=== PATIENT | male | born 1990 | race Caucasian/White ===

== ENCOUNTER 2022-08-06 08:16 | Outpatient (CLI) | payer BC, SELFPAY ==
[2022-08-06 18:40] LABS: Basophils Percent Auto 0.6 % (0.2-1.2); Eosinophils Absolute Auto 0.2 K/mm3 (0-0.3); Eosinophils Percent Auto 2.9 % (0-4.4); Hematocrit 46.8 % (42.0-52.0); Immature Granulocyte Absolute 0.01 K/mm3 (0.00-0.031); Immature Granulocyte Percent A 0.2 % (0-0.5); Lymphocytes Absolute Auto 2.28 K/mm3 (0.9-3.2); Lymphocytes Percent Auto 43.9 % (18.3-44.2); Mean Corpuscular HGB Conc 34.2 g/dl (32-36); Mean Corpuscular Hemoglobin 30.6 pg (26-34); Mean Corpuscular Volume 89.5 fl (80-100); Mean Platelet Volume 9.2 fl (7.4-10.4); Monocytes Absolute Auto 0.4 K/mm3 (0.1-0.6); Monocytes Percent Auto 7.7 % (2.6-8.5); Neutrophils Absolute Auto 2.3 K/mm3 (1.3-6.7); Neutrophils Percent Auto 44.7 % (45.5-73.1); Platelet Count Result 248 k/mm3 (150-375); Red Blood Count 5.23 M/mm3 (4.6-6.20); Red Cell Distribution Width 12.9 % (11.5-14.5); White Blood Count 5.2 K/mm3 (4.5-10.0)
[2022-08-06 18:52] LABS: Alanine Aminotransferase 160 U/L (6-50); Albumin Level 4.9 g/dL (3.5-5.1); Alkaline Phosphatase 106 U/L (38-126); Anion Gap 14 mmol/L (8-16); Aspartate Amino Transferase 71 U/L (17-59); Blood Urea Nitrogen 16 mg/dL (9-20); Calcium 9.1 mg/dL (8.4-10.2); Carbon Dioxide 23 mmol/L (22-30); Chloride 102 mmol/L (98-107); Cholesterol 231 mg/dL (0-200); Estimated Glomerular Filt Rate > 60; Glucose 84 mg/dL (65-110); HDL Direct 42 mg/dL; Potassium 3.7 mmol/L (3.4-5.0); Sodium 139 mmol/L (137-145); Triglycerides 187 mg/dL (<150)
[2022-08-06 19:10] LABS: Vitamin D 25 Hydroxy 22.2 ng/mL
[2022-08-06 19:24] LABS: Thyroid Stimulating Hormone Reflex 0.108 uIU/mL (0.465-4.68)
[2022-08-06 20:15] LABS: LDL Cholesterol Direct 135 mg/dL
[2022-08-06 22:33] LABS: Free T4 Free Thyroxine Reflex 0.94 ng/dL (0.78-2.19)
[2022-08-06 23:42] LABS: Total Triiodothyronine (T3) 1.89 NG/ML (0.97-1.69)
== END 2022-08-06 08:17 | disposition home or self-care (01) ==
LOC: ANHGOSHLAB 08:19
PROVIDERS: PCP Family Medicine; Visit Provider Nurse Practitioner Family
DX: Z00.00 Encounter for general adult medical examination without abnormal findings (principal); Z13.220 Encounter for screening for lipoid disorders; E55.9 Vitamin D deficiency, unspecified; Z13.29 Encounter for screening for other suspected endocrine disorder
CPT/HCPCS: 36415; 80053; 80061; 82306; 84439; 84443; 84480; 85025

== ENCOUNTER 2022-09-20 15:10 | Outpatient (CLI) | payer BC, SELFPAY ==
[2022-09-20 22:04] LABS: Alanine Aminotransferase 85 U/L (6-50); Albumin Level 4.8 g/dL (3.5-5.1); Alkaline Phosphatase 92 U/L (38-126); Anion Gap 10 mmol/L (8-16); Aspartate Amino Transferase 54 U/L (17-59); Bilirubin,Total 0.5 mg/dL (0.2-1.3); Blood Urea Nitrogen 15 mg/dL (9-20); Calcium 8.6 mg/dL (8.4-10.2); Carbon Dioxide 25 mmol/L (22-30); Chloride 104 mmol/L (98-107); Estimated Glomerular Filt Rate > 60; Glucose 91 mg/dL (65-110); Potassium 4.1 mmol/L (3.4-5.0); Sodium 139 mmol/L (137-145)
[2022-09-23 13:59] LABS: Thyrotropin Receptor Antibody <1.00 IU/L (<=2.00)
[2022-09-24 03:59] LABS: Thyroglobulin 8.9 ng/mL (2.8-40.9); Thyroglobulin Antibodies <1 IU/mL (<=1); Thyroid Peroxidase Antibodies <1 IU/mL (<9)
[2022-09-24 05:12] LABS: Triiodothyronine T3 Free 3.4 pg/mL (2.3-4.2)
== END 2022-09-20 15:11 | disposition home or self-care (01) ==
PROVIDERS: PCP Family Medicine; Visit Provider Family Medicine
DX: R79.89 Other specified abnormal findings of blood chemistry (principal); E07.9 Disorder of thyroid, unspecified
CPT/HCPCS: 36415; 80053; 83519; 84432; 84439; 84443; 84481; 86376; 86800

== ENCOUNTER → 2022-11-15 07:42 | Outpatient (CLI) | payer OTHER, SELFPAY ==
--- NOTE | ~2022-11-15 | US_ITS ---
Limited Abdominal Sonogram: Real-time sonographic imaging of the right upper quadrant was performed. Clinical History: Abnormal findings of blood chemistry Findings: The liver appears echogenic, with no evidence of mass lesion or bile duct dilatation. Main portal vein demonstrates normal direction of flow. The gallbladder is well distended, and appears no rmal with no evidence of gallstone or wall thickening. The common bile duct measures 4 mm. The visua lized pancreas, aorta, and IVC are unremarkable. Right kidney measures 10.8 cm in length, without lori dence for hydronephrosis. Impression: Diffuse fatty infiltration of the liver. Reviewed, dictated and finalized at location M. Impression: Diffuse fatty infiltration of the liver.
== END ==
PROVIDERS: PCP Family Medicine; Visit Provider Family Medicine
DX: R79.89 Other specified abnormal findings of blood chemistry (principal); K76.0 Fatty (change of) liver, not elsewhere classified
CPT/HCPCS: 76705

== ENCOUNTER 2023-07-14 12:53 | Outpatient (CLI) | payer OTHER, SELFPAY ==
[2023-07-14 20:20] LABS: Anion Gap 9 mmol/L (8-16); Blood Urea Nitrogen 12 mg/dL (9-20); Calcium 9.3 mg/dL (8.4-10.2); Carbon Dioxide 24 mmol/L (22-30); Chloride 105 mmol/L (98-107); Estimated Glomerular Filt Rate > 60; Glucose 91 mg/dL (65-110); Sodium 138 mmol/L (137-145)
[2023-07-18 23:58] LABS: Testosterone Total 13 ng/dL (250-1100)
[2023-07-20 21:22] LABS: Estradiol, Ultrasensitive 136 pg/mL (< OR = 29)
== END 2023-07-14 12:54 | disposition home or self-care (01) ==
LOC: ANHGOSHLAB 12:55
PROVIDERS: PCP Family Medicine
DX: Z78.9 Other specified health status (principal)
CPT/HCPCS: 36415; 80048; 82670; 84403

== ENCOUNTER 2023-11-28 08:15 | Outpatient (CLI) | payer OTHER, SELFPAY ==
[2023-11-28 14:45] LABS: Hematocrit 41.9 % (42.0-52.0); Hemoglobin 14.1 g/dL (14.0-18.0); Mean Corpuscular HGB Conc 33.7 g/dl (32-36); Mean Corpuscular Hemoglobin 30.4 pg (26-34); Mean Corpuscular Volume 90.3 fl (80-100); Platelet Count Result 270 k/mm3 (150-375); Red Blood Count 4.64 M/mm3 (4.6-6.20); Red Cell Distribution Width 12.5 % (11.5-14.5)
[2023-11-28 15:27] LABS: Vitamin D 25 Hydroxy 37.9 ng/mL
[2023-11-28 16:00] LABS: Alanine Aminotransferase 67 U/L (6-50); Albumin Level 4.5 g/dL (3.5-5.1); Alkaline Phosphatase 122 U/L (38-126); Anion Gap 10 mmol/L (4-12); Aspartate Amino Transferase 58 U/L (17-59); Bilirubin,Total 0.6 mg/dL (0.2-1.3); Blood Urea Nitrogen 13 mg/dL (9-20); Calcium 9.1 mg/dL (8.4-10.2); Carbon Dioxide 25 mmol/L (22-30); Chloride 101 mmol/L (98-107); Cholesterol 174 mg/dL (0-200); Estimated Glomerular Filt Rate > 60; Glucose 86 mg/dL (65-110); HDL Direct 48 mg/dL; Potassium 3.9 mmol/L (3.4-5.0); Sodium 136 mmol/L (137-145); Triglycerides 241 mg/dL (<150)
[2023-11-28 16:11] LABS: LDL Cholesterol Direct 92 mg/dL
== END 2023-11-28 08:16 | disposition home or self-care (01) ==
LOC: ANHGOSHLAB 08:18
PROVIDERS: PCP Family Medicine; Visit Provider Nurse Practitioner
DX: Z00.00 Encounter for general adult medical examination without abnormal findings (principal); E55.9 Vitamin D deficiency, unspecified
CPT/HCPCS: 36415; 80053; 80061; 82306; 84443; 85027

== ENCOUNTER 2024-03-05 10:25 | Outpatient (CLI) | payer OTHER, SELFPAY ==
[2024-03-05 16:07] LABS: Hemoglobin A1C 5.4 % (<5.7)
== END 2024-03-05 10:26 | disposition home or self-care (01) ==
LOC: ANHGOSHLAB 10:26
PROVIDERS: PCP Family Medicine; Visit Provider Family Medicine
DX: Z13.29 Encounter for screening for other suspected endocrine disorder (principal); F41.8 Other specified anxiety disorders; R53.83 Other fatigue; Z13.1 Encounter for screening for diabetes mellitus
CPT/HCPCS: 36415; 83036; 84443

== ENCOUNTER 2024-04-20 07:59 | Outpatient (CLI) | payer OTHER, SELFPAY | END 2024-04-21 07:10 | disposition home or self-care (01) | PROVIDERS: PCP Family Medicine; Visit Provider Family Medicine | DX: G47.10 Hypersomnia, unspecified (principal) | CPT/HCPCS: 95810 ==

== ENCOUNTER 2024-11-27 09:14 | Outpatient (CLI) | payer OTHER, SELFPAY ==
--- OUTSIDE RECORDS SUMMARY | 2024-11-27 09:22 | XMS_ITS | Encounter Summary ---
Author Organization [facility] Address [address] [place] [address] Phone Care Team Providers Care Entertainment Manager Name Role Phone Mani Lucas MD Primary Care Provider Encounter Details Date Type Department Care Team (Latest Contact Info) Description 11/15/2022 Orders Only [facility] EML Scanning, Provider Social History Tobacco Use Types Packs/Day Years Used Date Smoking Tobacco: Never Assessed Sex and Gender Information Value Date Recorded Sex Assigned at Male 12/14/2022 4:26 PM CDT Legal Sex Male 2:52 PM CDT Gender Identity Female 10/11/2022 2:54 PM CDT Sexual Orientation Bisexual 08/11/2023 7: 55 PM CDT documented as of this encounter Plan of Treatment Not on file documented as of this encounter Procedures Procedure Name Priority Date/Time Associated Diagnosis Comments SCAN - RADIOLOGY/IMAGING 11/15/2022 documented in this encounter Results * SCAN - RADIOLOGY/IMAGING (11/15/2022) Anatomical Region Laterality Modality Other us Provider Scanning Final Result documented in this encounter Visit Diagnoses Not on filedocumented in this encounter Care Teams Entertainment Manager Relationship Specialty Start Date End Date Mani Lucas MD PCP - General Family Practice 10/11/22 documented as of this encounter
--- OUTSIDE RECORDS SUMMARY | 2024-11-27 09:22 | XMS_ITS | Clinical Summary ---
Author Organization [facility] Address [address] [place] [id number] Care Team Providers Care Interlocker Maintainer Name Role Phone Mani Lucas MD Primary Care Provider Allergies No known active allergies Medications citalopram (CeleXA) 20 mg tablet Take 2 tablets (40 mg total) by mouth daily 3 Active cholecalciferol (VITAMIN D-3) 50,000 unit capsule Take 1 capsule (50,000 Units total) by mouth once a week 3 Active syringe, disposable, (Easy Touch Luer Lock Syringe) 1 mL syringeIndicati ons:Male-to-fem wale transgender person Use for estradiol weekly 13 each 3 3 Active insulin syringe needleless (Easy Touch Luer Lock Insulin) 1 mL syringeIndicati ons:Other specified health status USE ONE SYRINGE FOR ESTRADIOL WEEKLY 13 each 3 4 Active needle, disp, 18 G (BD Regular Bevel [place]ampart) 18 gauge x 1 1/2 needleIndicatio ns:Hormone replacement therapy,Male-to -female transgender person USE TO DRAW UP ESTRADIOL ONCE WEEKLY. SWITCH TO ORDERED 25 G NEEDLE PRIOR TO INJECTION. 13 each 4 Active BD SafetyGlide Needle 25 gauge x 5/8 needleIndicatio ns:Nrdc-fv-ebuq le transgender person USE TO INJECT ESTRADIOL WEEKLY 13 each 3 5 Active vehicle base no.24, bulk, creamIndication s:Dyov-be-rnomy e transgender person,Painful erection Topical testosterone cream 2.5 mg/g (0.25% Versabase cream). Apply 1 gram topically to genitals once a week. 4 g 3 5 Active estradiol valerate (DELESTROGEN) 20 mg/mL injectionIndica tions:Male-to-f emale transgender person INJECT 0.15 ML (3 MG) UNDER THE SKIN EVERY 5 DAYS 15 mL 1 5 Active progesterone (PROMETRIUM) 100 mg capsule TAKE 1 CAPSULE BY MOUTH EVERY DAY 90 capsule 5 Active Active Problems Problem Noted Date Diagnosed Date BMI 34.0-34.9,adult 07/02/2024 Painful erection 07/12/2023 Zuis-kl-rjesqu transgender person 03/28/2023 Assessment & Plan (03/28/2023 4:07 PM HAZARDOUS MATERIALS WASTE TECHNICIAN): The patient confirms a marked incongruence between the experienced/expressed gender and bandar gender of at least 6 mo in duration. We reviewed anticipated effects of therapy and anticipated time frame She understands potential risks of therapy including: thromboembolic disease, breast cancer, coronary artery disease, cerebrovascular disease, cholelithiasis, hypertriglyceridemia, worsening migraines, hypertension. She is not interested in fertility preservation at this time. We discussed the necessity of using reliable contraception if intercourse with individuals who make eggs to prevent . She has good insight and understanding of risks/benefits of gender affirming hormone therapy. She understands that some of the effects of hormone therapy are irreversible: breast growth, and potentially decrease in fertility. Based on my assessment, she continues to be a good candidate for estradiol. 1) Medication Estradiol valerate 2 mg SC weekly Spironolactone 50 mg PO daily 2) Lab Monitoring Labs ordered today: BMP, testosterone, estradiol, and Lipid panel Estradiol, testosterone q3 months x 1 year, then q 6 months Monitor K, Cr on spironolactone q3 months x 1 year then q6 months; LFTs on bicalutamide q3 months x 1 year then q 6 months CMP, Lipids at baseline and annually Target Estradiol level: 100-200 pg/mL Target testosterone level: < 50 ng/dl 3) Cancer Screening Breast: age 40 or after 5 years on estradiol Prostate: age 49 4) Patient information provided Laser hair removal info 5) Referrals provided Dermatology 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 2-3 times a week 12/14/2022 Q2: How many drinks containi ng alcohol do you have on a typical day when you are drinking? 3 or 4 12/14/2022 Frequency of Binge Drinking Not on file 12/2022 PHQ-2 Answer Date Recorded PHQ-2 Total Score (If total score is 3 or more points, staff should administer the PHQ-9) 1 12/14/2022 Sex and Gender Information Value Date Recorded Sex Assigned at Male 12/14/2022 4:26 PM CDT Legal Sex Male 2:52 PM CDT Gender Identity Female 10/11/2022 2:54 PM CDT Sexual Orientation Bisexual 08/11/2023 7: 55 PM CDT Obstetrics History Last Filed Vital Signs Vital Sign Reading Time Taken Comments Blood Pressure 105/73 07/02/2024 8:53 AM HAZARDOUS MATERIALS WASTE TECHNICIAN Pulse 61 07/02/2024 8:53 AM HAZARDOUS MATERIALS WASTE TECHNICIAN Temperature 36.4 C (97.5 F) 12/14/2022 10:54 AM CDT Respiratory Rate - - Oxygen Saturation 98% 07/02/2024 8:53 AM HAZARDOUS MATERIALS WASTE TECHNICIAN Inhaled Oxygen Concentration - - Weight 116.8 kg (257 lb 6.4 oz) 07/02/2024 8:53 AM HAZARDOUS MATERIALS WASTE TECHNICIAN Height 182.9 cm (6' 0.01) 07/02/2024 8:53 AM CS T Body Mass Index 34.9 07/02/2024 8:53 AM HAZARDOUS MATERIALS WASTE TECHNICIAN Plan of Treatment Health Maintenance Due Date Last Done Comments Hepatitis C Screening 1989 DTaP/Tdap/Td Vaccine (1 - Tdap) 2000 Varicella Vaccines (1 of 2 - 13+ 2-dose series) 2002 Hepatitis B Screening 08/27/2007 Regular Well Visit/Exam 18-64 08/27/2007 Depression Screening 12/15/2023 12/14/2022 Covid-19 Vaccine (2023-2 5 season) 2024 04/13/2021, 08/31/2020, 08/08/2020 Influenza Vaccine (#1) 2025 HPV Vaccines Aged Out No longer eligi ble based on patient's age to complete this topic Pneumococcal vaccine <65 Aged Out No longer eligible based on patient's age to complete this topic Insurance [facility] [id number] [facility] [id number] Care Teams Interlocker Maintainer Relationship Specialty Start Date End Date Mani Lucas MD PCP - General Family Practice 10/11/22
--- OUTSIDE RECORDS SUMMARY | 2024-11-27 09:22 | XMS_ITS | Referral Summary ---
Author Organization [facility] Address On [place] [address] Care Team Providers Care Equipment Maintenance Engineer Name Role Phone Mani Lucas MD Primary [...] needle, disp, 18 G (BD Regular Bevel [place]) 18 gauge x 1 1/2 needleIndicatio ns:Hormone replacement therapy,Male-to -female transgender person USE TO DRAW UP ESTRADIOL ONCE WEEKLY. SWITCH TO ORDERED 25 G NEEDLE PRIOR TO INJECTION. 13 each 4 Active BD SafetyGlide Needle 25 gauge x 5/8 needleIndicatio ns:Aojp-oy-retw le transgender person USE TO INJECT ESTRADIOL WEEKLY 13 each 3 5 Active vehicle base no.24, bulk, creamIndication s:Rkzc-im-mwjni e transgender person,Painful erection Topical testosterone cream [...] Date BMI 34.0-34.9,adult 07/02/2024 Painful erection 07/12/2023 Rsnz-vp-houqtx transgender person 03/28/2023 Assessment & Plan (03/28/2023 4:07 PM LEATHER DRIER): The patient confirms a marked incongruence between [...] 03/28/2023 Assessment & Plan (03/28/2023 4:08 PM LEATHER DRIER): Seeing speech therapy Social History Tobacco Use Types Packs/Day Years [...] Orientation Bisexual 08/11/2023 7: 55 PM CDT Last Filed Vital Signs Vital Sign Reading Time Taken Comments Blood Pressure 105/73 07/02/2024 8:53 AM LEATHER DRIER Pulse 61 07/02/2024 8:53 AM LEATHER DRIER Temperature 36.4 C (97.5 F) 12/14/2022 10:54 AM CDT Respiratory Rate - - Oxygen Saturation 98% 07/02/2024 8:53 AM LEATHER DRIER Inhaled Oxygen Concentration - - Weight 116.8 kg (257 lb 6.4 oz) 07/02/2024 8:53 AM LEATHER DRIER Height 182.9 cm (6' 0.01) 07/02/2024 8:53 AM CS T Body Mass Index 34.9 07/02/2024 8:53 AM LEATHER DRIER Plan of Treatment Not on file Insurance [facility] [id number] [facility] [id number] Care Teams Equipment Maintenance Engineer Relationship Specialty Start Date End Date Mani Lucas MD PCP - General Family Practice 10/11/22
--- OUTSIDE RECORDS SUMMARY | 2024-11-27 09:22 | XMS_ITS | Clinical Summary ---
Author Organization [facility] Address [address] [place] [address] Phone Care Team Providers Care Triage Specialist Name Role Phone Mani Lucas MD Primary Care Provider George Malin PAC Unavailable [phone] Allergies No known active allergies Medications citalopram (CeleXA) 20 MG Tablet Take 20 mg by mouth daily. Active estradiol valerate (DELESTROGEN) 20 MG/ML Oil 20 mg by Intramuscular route once a week. Active traMADol (ULTRAM) 50 MG TabletIndicatio ns:Ankle pain, unspecified chronicity, unspecified laterality,Avul pineda fracture Take 1 Tablet by mouth every 6 hours as needed for Mild or more severe pain. 20 Tablet Active VITAMIN D PO Take by mouth. Ac tive Active Problems No known active problems Social History Tobacco Use Types Packs/Day Years Used Date Smoking Tobacco: Never Smokeless Tobacco: Never Tobacco Cessation:Counseling Given: Not Answered Alcohol Use Standard Drinks/Week Comments Yes 0 (1 standard drink = 0.6 oz pur e alcohol) Sex and Gender Information Value Date Recorded Sex Assigned at Male 10/15/2023 3:54 PM CDT Legal Sex Male 3:53 PM CDT Gender Identity Transgender Female 10/15/2023 3: 54 PM CDT Sexual Orientation Bisexual 12/01/2023 4: 26 PM CDT Last Filed Vital Signs Vital Sign Reading Time Taken Comments Blood Pressure 118/70 11/23/2023 8:48 AM CDT Pulse 88 11/23/2023 8:48 AM CDT Temperature 36.1 C (97 F) 10/18/2023 8:46 AM CDT Respiratory Rate 14 11/23/2023 8:48 AM CDT Oxygen Saturation 98% 11/23/2023 8:48 AM CDT Inhaled Oxygen Concentration - - Weight 99.8 kg (220 lb) 11/23/2023 8:48 AM CDT Height 180.3 cm (5' 11) 11/23/2023 8:48 AM CDT Body Mass Index 30.68 11/23/2023 8:48 AM CDT Plan of Treatment Health Maintenance Due Date Last Done Comments Hepatitis C Virus (HCV) Screening 1989 TdaP Immunization 1989 Human Papillomavirus (HPV) Immunization (1 - 3-dose series) 2004 Hepatitis B Immunization (1 of 3 - 19+ 3-dose series) 2008 SARS-COV-2 Immunization ( season) 2024 04/13/2021, 08/31/2020, 08/08/2020 Influenza Immunization (#1) 2025 Respiratory Syncytial Virus (RSV) Immunization (Adult) (1 - 1-dose 75+ series) 2064 Meningococcal Immunization (ACWY) Aged Out No longer eligible b ased on patient's age to complete this topic Pneumococcal Immunization Combined Aged Out No longer eligible b ased on patient's age to complete this topic Rotavirus Immunization Aged Out No lo nger eligible based on patient's age to complete this topic Insurance [facility] Care Teams Triage Specialist Relationship Specialty Start Date End Date Mani Lucas MD [facility] [address] [place] [address] PCP - General Family Medicine 10/15/23 George Malin PAC [address] [place] [address] [address] [place] [address] Physician Clinical Training Specialist Physician Clinical Training Specialist 11/03/23
[2024-11-27 19:02] LABS: Hematocrit 43.0 % (42.0-52.0); Hemoglobin 13.9 g/dL (14.0-18.0); Immature Granulocyte Percent A 0.4 % (0-0.5); Lymphocytes Absolute Auto 2.17 K/mm3 (0.9-3.2); Mean Corpuscular HGB Conc 32.3 g/dl (32-36); Mean Corpuscular Hemoglobin 29.8 pg (26-34); Mean Corpuscular Volume 92.1 fl (80-100); Nucleated Red Blood Cells Absolute Auto 0.000 K/mm3 (0.0-0.012); Nucleated Red Blood Cells Perc 0.0 % (0.0-0.2); Platelet Count Result 268 k/mm3 (150-375); Red Blood Count 4.67 M/mm3 (4.6-6.20); White Blood Count 6.7 K/mm3 (4.5-10.0)
[2024-11-27 19:11] LABS: Alanine Aminotransferase 85 U/L (6-50); Albumin Level 4.4 g/dL (3.5-5.1); Alkaline Phosphatase 107 U/L (38-126); Anion Gap 9 mmol/L (4-12); Aspartate Amino Transferase 64 U/L (17-59); Bilirubin,Total 0.4 mg/dL (0.2-1.3); Blood Urea Nitrogen 13 mg/dL (9-20); Calcium 9.3 mg/dL (8.4-10.2); Carbon Dioxide 22 mmol/L (22-30); Chloride 107 mmol/L (98-107); Cholesterol 214 mg/dL (0-200); Estimated Glomerular Filt Rate > 60; Glucose 98 mg/dL (65-110); HDL Direct 66 mg/dL; Potassium 4.3 mmol/L (3.4-5.0); Sodium 138 mmol/L (137-145); Total Protein 7.2 g/dL (6.3-8.2); Triglycerides 111 mg/dL (<150)
[2024-11-27 20:01] LABS: Vitamin B12 461.0 pg/mL (239-931)
[2024-11-27 20:18] LABS: Thyroid Stimulating Hormone Reflex 1.140 uIU/mL (0.465-4.68)
[2024-11-27 20:21] LABS: Ferritin 123.00 ng/mL (17.9-464)
[2024-11-27 21:22] LABS: Hemoglobin A1C 5.5 % (<5.7)
== END 2024-11-27 09:15 | disposition home or self-care (01) ==
LOC: ANHGOSHLAB 09:15
PROVIDERS: PCP Family Medicine; Visit Provider Family Medicine
DX: Z00.00 Encounter for general adult medical examination without abnormal findings (principal); E53.8 Deficiency of other specified B group vitamins; E55.9 Vitamin D deficiency, unspecified; R73.9 Hyperglycemia, unspecified; D64.9 Anemia, unspecified; G25.81 Restless legs syndrome; E78.5 Hyperlipidemia, unspecified; F41.8 Other specified anxiety disorders
CPT/HCPCS: 36415; 80053; 80061; 82306; 82607; 82728; 83036; 84443; 85025